=== PATIENT | female | born 1985 | race Caucasian/White ===

== ENCOUNTER 2019-12-11 08:06 | Outpatient (CLI) | payer OTHER ==
--- NOTE | 2019-12-11 15:06 | Ultrasound Report ---
Reason: POSTIVE TEST Procedure Date: 12/11/2019 Accession Number: [id number] / [id number] Procedure: US - OB First Trimester CPT Code: Final Report FULL RESULT: EXAM: FIRST TRIMESTER OBSTETRIC ULTRASOUND (Less than 11 weeks) EXAM DATE: 12/11/2019 09:28 AM. CLINICAL HISTORY: Postive test. LMP: Unknown. COMPARISONS: None. TECHNIQUE: Transabdominal and transvaginal ultrasound examination with static image documentation. CLINICAL DATES: A twin gestation is present. EGA 9 weeks 1 day with RANI 07/14/2020 based on LMP. ASSESSMENT: Twin A: Gestational Sac: 2 gestational sacs with a thick intervening membrane. Mean gestational sac diameter: 42.1 mm = 9 weeks 5 days. Embryo: CRL (crown-rump length) 23.9 mm = 9 weeks 1 day. Cardiac activity: 173 beats per minute. Yolk sac: 3.0 mm. Amniotic fluid: Not accurately assessed at this gestational age. Early placenta: Not visible at this gestational age. There is a thick intervening membrane. Other: No perigestational fluid collection demonstrated. Twin B: Gestational Sac: 2 gestational sacs with a thick intervening membrane.. Mean gestational sac diameter: 29.9 mm = 8 weeks 1 day. Embryo: CRL (crown-rump length) 22.7 mm = 9 weeks 0 days. Cardiac activity: 187 beats per minute. Yolk sac: 3.7 mm. Amniotic fluid: Not accurately assessed at this gestational age. Early placenta: Not visible at this gestational age. Other: No perigestational fluid collection demonstrated. Thick intervening membrane. MATERNAL STRUCTURES: Uterus: Anteverted. Right-sided subserosal fibroid is present measuring 5.4 x 3.7 x 3.7 cm.. Cervix: Closed. Right Ovary/Adnexa: The ovary measures 2.7 x 2.5 x 2.0 cm, volume 7.1 cc. Unremarkable. Left Ovary/Adnexa: Ovary was not seen. No masses. Free Fluid: None. Other: None. IMPRESSION: 1. Dichorionic diamniotic living twin gestation. Twin A crown-rump length corresponds to a 9 week 1 day gestation. Twin B crown-rump length corresponds to a 9 week 0 day gestation. RANI is 07/14/2020 for twin A and 07/15/2020 for twin B. This is concordant with clinical dates. RADIA
== END 2019-12-11 08:07 | disposition home or self-care (01) ==
LOC: DI 08:06
PROVIDERS: ATTEND Obstetrics & Gynecology
DX: O30.041 Twin pregnancy, dichorionic/diamniotic, first trimester (principal); Z3A.09 9 weeks gestation of pregnancy
CPT/HCPCS: 76801; 76802; 76817

== ENCOUNTER 2019-12-17 10:20 | Outpatient (CLI) | payer OTHER ==
[2019-12-17 18:52] LABS: TRICHOMONAS VAGINALIS DNA NEGATIVE (NEGATIVE)
== END 2019-12-17 23:59 | disposition home or self-care (01) ==
LOC: LAB.R 10:20
PROVIDERS: ATTEND Obstetrics & Gynecology
DX: O09.91 Supervision of high risk pregnancy, unspecified, first trimester (principal); Z3A.00 Weeks of gestation of pregnancy not specified; O30.049 Twin pregnancy, dichorionic/diamniotic, unspecified trimester
CPT/HCPCS: 36415; 80306; 80361; 80365; 81003; 81599; 85025; 86762; 86803; 86850; 86900; 86901; 87340; 87389; 87491; 87591; 87661

== ENCOUNTER 2019-12-17 10:49 | Outpatient (CLI) | payer OTHER ==
[2019-12-17 10:52] LABS: MUDS CUTOFF CONCENTRATIONS CUTOFF CONC BELOW:
[2019-12-17 13:45] LABS: BASOPHILS % (AUTO) 0.4 %; EOSINOPHILS % (AUTO) 0.3 %; HGB - HEMOGLOBIN 13.2 g/dL (12.0-16.0); LYMPHOCYTES # (AUTO) 2.1 10^3/uL (1.5-3.5); LYMPHOCYTES % (AUTO) 21.4 %; MEAN CORPUSCULAR HGB CONC 33.8 g/dL (32.0-36.0); MEAN CORPUSCULAR VOLUME 88.9 fL (81.0-99.0); MEAN PLATELET VOLUME 11.1 fL (7.9-10.8); MONOCYTES # (AUTO) 0.7 10^3/uL (0.0-1.0); MONOCYTES % (AUTO) 7.4 %; NEUTROPHILS # (AUTO) 6.8 10^3/uL (1.5-6.6); NEUTROPHILS % (AUTO) 69.7 %; PLT - PLATELET COUNT 302 10^3/uL (130-450); RED CELL DISTRIBUTION WIDTH 12.4 % (12.0-15.0); WHITE BLOOD COUNT 9.7 x10^3/uL (4.8-10.8)
[2019-12-17 13:47] LABS: BILIRUBIN,URINE NEGATIVE (NEGATIVE); GLUCOSE, URINE (UA) NEGATIVE (NEGATIVE); KETONES,URINE (UA) NEGATIVE (NEGATIVE); LEUKOCYTE ESTERASE, URINE NEGATIVE (NEGATIVE); NITRITE,URINE NEGATIVE (NEGATIVE); OCCULT BLOOD,URINE NEGATIVE (NEGATIVE); PH,URINE 6.5 PH (5.0-7.5); PROTEIN,URINE NEGATIVE (NEGATIVE); UROBILINOGEN,URINE 0.2 (NORMAL) E.U./dL (NORMAL)
[2019-12-17 13:53] LABS: CLARITY,URINE CLEAR (CLEAR)
[2019-12-17 13:56] LABS: AMPHETAMINE SCREEN,URINE NEGATIVE (NEGATIVE); BENZODIAZEPINES SCREEN, URINE NEGATIVE (NEGATIVE); COCAINE SCREEN URINE NEGATIVE (NEGATIVE); METHADONE SCREEN, URINE NEGATIVE (NEGATIVE); METHAMPHETAMINES SCREEN, URINE NEGATIVE (NEGATIVE); OPIATE SCREEN, URINE POSITIVE (NEGATIVE); OXYCODONE SCREEN, URINE NEGATIVE (NEGATIVE); PROPOXYPHENE SCREEN, URINE NEGATIVE (NEGATIVE); TRICYCLIC ANTIDEPRESSANT,URINE NEGATIVE (NEGATIVE)
[2019-12-18 09:36] LABS: HIV AG/AB 4TH GEN NON-REACTIVE (NON-REACTIVE)
[2019-12-18 13:00] LABS: HEPATITIS B SURFACE ANTIGEN NON-REACTIVE (NON-REACTIVE); HEPATITIS C ANTIBODY NON-REACTIVE (NON-REACTIVE)
== END 2019-12-17 23:59 | disposition home or self-care (01) ==
LOC: LAB.WCP 10:49
PROVIDERS: ATTEND Obstetrics & Gynecology
DX: O30.049 Twin pregnancy, dichorionic/diamniotic, unspecified trimester (principal); Z3A.00 Weeks of gestation of pregnancy not specified
CPT/HCPCS: 36415; 80306; 81001; 81003; 81599; 85025; 86762; 86803; 86850; 86900; 86901; 87086; 87340; 87389

== ENCOUNTER 2020-01-22 16:24 | Outpatient (CLI) | payer OTHER | END 2020-01-22 16:25 | disposition home or self-care (01) | LOC: LAB 16:24 | PROVIDERS: ATTEND Obstetrics & Gynecology | DX: O09.91 Supervision of high risk pregnancy, unspecified, first trimester (principal); O30.049 Twin pregnancy, dichorionic/diamniotic, unspecified trimester; Z3A.00 Weeks of gestation of pregnancy not specified; Z36.0 Encounter for antenatal screening for chromosomal anomalies | CPT/HCPCS: 36415; 81599; 82105 ==

== ENCOUNTER 2020-04-13 19:52 | Outpatient (CLI) | payer OTHER ==
[2020-04-13 21:09] LABS: BASOPHILS # (AUTO) 0.1 10^3/uL (0.0-0.1); BASOPHILS % (AUTO) 0.5 %; EOSINOPHILS # (AUTO) 0.1 10^3/uL (0.0-0.7); EOSINOPHILS % (AUTO) 0.7 %; LYMPHOCYTES # (AUTO) 2.3 10^3/uL (1.5-3.5); LYMPHOCYTES % (AUTO) 21.1 %; MEAN CORPUSCULAR HEMOGLOBIN 30.5 pg (27.0-31.0); MEAN CORPUSCULAR HGB CONC 34.8 g/dL (32.0-36.0); MEAN CORPUSCULAR VOLUME 87.5 fL (81.0-99.0); MEAN PLATELET VOLUME 12.3 fL (7.9-10.8); MONOCYTES # (AUTO) 0.8 10^3/uL (0.0-1.0); MONOCYTES % (AUTO) 7.6 %; NEUTROPHILS # (AUTO) 7.3 10^3/uL (1.5-6.6); NEUTROPHILS % (AUTO) 67.4 %; PLT - PLATELET COUNT 214 10^3/uL (130-450); RED BLOOD COUNT 3.61 10^6/uL (4.20-5.40); RED CELL DISTRIBUTION WIDTH 12.6 % (12.0-15.0); WHITE BLOOD COUNT 10.8 x10^3/uL (4.8-10.8)
== END 2020-04-13 19:53 | disposition home or self-care (01) ==
LOC: LAB 19:52
PROVIDERS: ATTEND Obstetrics & Gynecology
DX: O36.0191 Maternal care for anti-D [Rh] antibodies, unspecified trimester, fetus 1 (principal); Z3A.00 Weeks of gestation of pregnancy not specified
CPT/HCPCS: 36415; 82950; 85025; 86850

== ENCOUNTER 2020-04-15 08:00 | Outpatient (CLI) | payer OTHER ==
[2020-04-15 18:53] LABS: ALBUMIN 2.9 g/dL (3.2-5.5); ALBUMIN/GLOBULIN RATIO 0.6 (1.0-2.2); BILIRUBIN,TOTAL 0.3 mg/dL (0.2-1.0); CREATININE 0.8 mg/dL (0.4-1.0); TOTAL PROTEIN 7.4 g/dL (6.7-8.2)
== END 2020-04-15 23:59 | disposition home or self-care (01) ==
LOC: LAB.WCP 08:00
PROVIDERS: ATTEND Advanced Practice Midwife
DX: L29.9 Pruritus, unspecified (principal)
CPT/HCPCS: 36415; 80053; 82239

== ENCOUNTER 2020-04-17 07:26 | Outpatient (CLI) | payer OTHER | END 2020-04-17 07:27 | disposition home or self-care (01) | LOC: LAB 07:26 | PROVIDERS: ATTEND Obstetrics & Gynecology | DX: O99.810 Abnormal glucose complicating pregnancy (principal); Z3A.00 Weeks of gestation of pregnancy not specified | CPT/HCPCS: 36415; 82951; 82952 ==

== ENCOUNTER 2020-04-21 15:36 | Outpatient (CLI) | payer OTHER ==
[2020-04-21] MEDS ORDERED: LACTATED RINGERS 1,000 ML IV SCH (16:00)
[2020-04-21] MEDS ORDERED: MAGNESIUM SULFATE 2 GRAM 2 GM/50 ML BAG IV SCH (16:00)
[2020-04-21] MEDS ORDERED: BETAMETHASONE 30 MG/5 ML VIAL IM SCH (16:00)
[2020-04-21] MEDS ORDERED: BETAMETHASONE 30 MG/5 ML VIAL ONE (16:01)
[2020-04-21] MEDS ORDERED: LACTATED RINGERS 1,000 ML IV ONE (16:01)
[2020-04-21 16:07] LABS: BASOPHILS # (AUTO) 0.1 10^3/uL (0.0-0.1); BASOPHILS % (AUTO) 0.6 %; EOSINOPHILS # (AUTO) 0.1 10^3/uL (0.0-0.7); EOSINOPHILS % (AUTO) 0.7 %; HGB - HEMOGLOBIN 11.6 g/dL (12.0-16.0); LYMPHOCYTES # (AUTO) 3.6 10^3/uL (1.5-3.5); LYMPHOCYTES % (AUTO) 27.7 %; MEAN CORPUSCULAR HEMOGLOBIN 29.7 pg (27.0-31.0); MEAN CORPUSCULAR HGB CONC 33.4 g/dL (32.0-36.0); MONOCYTES # (AUTO) 1.3 10^3/uL (0.0-1.0); MONOCYTES % (AUTO) 10.3 %; NEUTROPHILS # (AUTO) 7.3 10^3/uL (1.5-6.6); NEUTROPHILS % (AUTO) 57.2 %; PLT - PLATELET COUNT 244 10^3/uL (130-450); RED CELL DISTRIBUTION WIDTH 13.1 % (12.0-15.0); WHITE BLOOD COUNT 12.8 x10^3/uL (4.8-10.8)
[2020-04-21 16:19] LABS: ALBUMIN 3.1 g/dL (3.2-5.5); ALBUMIN/GLOBULIN RATIO 0.7 (1.0-2.2); BILIRUBIN,TOTAL 0.5 mg/dL (0.2-1.0); CALCIUM 9.7 mg/dL (8.5-10.3); CREATININE 1.1 mg/dL (0.4-1.0); TOTAL PROTEIN 7.8 g/dL (6.7-8.2); URIC ACID 9.3 mg/dL (2.6-7.2)
[2020-04-21] MEDS ORDERED: MAGNESIUM SULFATE IN WATER 20 GM/500 ML IV.SOLN IV SCH (16:30)
[2020-04-21] MEDS ORDERED: LABETALOL 20 MG/4 ML SYRINGE IVP ONE ×2 (16:40→16:47)
[2020-04-21 16:48] LABS: CREATININE,URINE 41.1 mg/dL; PROTEIN/CREATININE RATIO,URINE 0.2 (<=0.2)
[2020-04-21 17:17] VITALS: BP 130/86
--- NOTE | 2020-04-21 19:20 | HISTORY & PHYSICAL EXAMINATION ---
DATE OF SERVICE: 04/21/2020 Physician: Yves Bass MD IDENTIFICATION: Patient is a 34-year-old G1, P0 female whose EDC was 2019. She is currently 28 weeks; this was determined by early ultrasound. She is also noted to have twin gestations of male/female. CHIEF COMPLAINT: Patient was seen at appointment today, at which time she had initially problems with scotoma and light flashes. These resolved, and she developed a severe headache at 1330. This has resolved; however at her appointment, her blood pressure today was 148/94. Her , she has noted blood pressures of 135-140s over 80s-90s. Because of a strong family history of a mother who had severe preeclampsia, requiring delivery at 28 weeks at [facility], she was started on ASA 81 mg on a daily basis. She has been seen by Maternal Medicine also during her . Her OB care started at 9 weeks EGA. Of note is she has recently had an abnormal 50 gram Glucola, which is indicative of gestational diabetes. Her labs show her to be O negative. She is negative for RPR, hepatitis B, chlamydia and gonorrhea, as well as hep C. PAST MEDICAL HISTORY: GERD, GDM, anxiety. PAST SURGICAL HISTORY: Tonsillectomy and adenoidectomy, as well as wisdom teeth, as well as facial plastic surgery secondary to a dog bite. CURRENT MEDICATIONS 1. Iron sulfate. 2. ASA 81 mg daily. 3. Omeprazole. HABITS: Patient currently denies the use of any alcohol, tobacco, or street or addictive drugs or marijuana. She states prior to , she would have occasional alcohol. SOCIAL HISTORY: Patient is to an active [employer] [place] person. She works at home with [employer] support. FAMILY HISTORY: Positive for ovarian cancer, diabetes, cardiovascular disease, preeclampsia in a mother, as well as hypertension. REVIEW OF SYSTEMS: Patient wears glasses. She denies any cardiovascular symptoms. She denies any musculoskeletal symptoms. She does have current headache, as previously noted. PHYSICAL EXAM VITAL SIGNS: Initially 148/94; these have bumped all the way up to 160/88. Pulse was running 90. HEENT: Pupils are equal, round. Extraocular muscles are intact. Thyroid is not palpably enlarged. Mouth is clear. HEART: Regular rate and rhythm without murmurs. LUNGS: Lung iqbal are clear without rales or wheezes. ABDOMEN: Roughly 36 cm fundal height. EXTREMITIES: DTRs are 2+, however, she does have a beat of clonus bilaterally. Patient is somewhat anxious at this time. LABORATORY DATA: The positives are a BUN of 20, creatinine of 1.1. A uric acid of 9.3. However, her AST and ALT are both normal. Her CBC showed a white count of 12.8, hemoglobin 11.6, hematocrit 34.7, platelets 244. She has a protein- creatinine ratio 0.2. IMPRESSION: A 34-year-old G1, P0, 28-week twin gestation with preeclampsia and headache. Gestational diabetes, which was just been diagnosed. Dr. Carolynn Kirk discussed this with Dr. Mayen Gabe. At this point, they feel that admission for further observation would be judicious. PLAN: I have discussed with Jaimee Cee MD, who is the hospitalist at the [place], [place], and she accepts the transfer. We have started magnesium sulfate 6 gram load with 2 grams/hour. We will also given her betamethasone. TD: 04/21/2020 16:52 [email or web address]
== END 2020-04-21 18:50 | disposition short-term general hospital (02) ==
LOC: WFO 15:36 → FBP 15:38 → WFO 18:50
PROVIDERS: ATTEND Obstetrics & Gynecology
DX: O14.93 Unspecified pre-eclampsia, third trimester (principal); O30.003 Twin pregnancy, unspecified number of placenta and unspecified number of amniotic sacs, third trimester; O24.419 Gestational diabetes mellitus in pregnancy, unspecified control; Z3A.28 28 weeks gestation of pregnancy; Z79.82 Long term (current) use of aspirin; Z82.49 Family history of ischemic heart disease and other diseases of the circulatory system
CPT/HCPCS: 80053; 82570; 84156; 84550; 85025; 96365; 96366; 96372; 96375; 99215; J7120